=== PATIENT | male | born 1950 | race Caucasian/White ===

== ENCOUNTER → 2017-02-22 | Outpatient (CLI) | payer MEDICARE, BC ==
[~2017-02-22] MED LIST: ALFU10TA7 PO; DUTA0.5C9 PO; LISI-15 PO; METO10TA PO; MULT-728 PO; PANT40TA25 PO; PIRB14AE2 IH; TRIA16.56 NS; ZOLP-109 PO; [UNRECOGNIZED DRUG - CODE] IH
[2017-02-22 14:08] LABS: BASOPHILS % (AUTO) 0.3 % (0-2); EOSINOPHILS # (AUTO) 0.2 T/MM3 (0-0.5); EOSINOPHILS % (AUTO) 3.6 % (0-4); HCT - HEMATOCRIT 40.9 % (41-53); HGB - HEMOGLOBIN 13.7 GM/DL (13.5-17.5); IMMATURE GRANULOCYTE # (AUTO) 0.01 T/MM3 (0.00-0.03); IMMATURE GRANULOCYTE % (AUTO) 0.2 % (0.0-0.5); LYMPHOCYTES # (AUTO) 2.2 T/MM3 (1-4.8); LYMPHOCYTES % (AUTO) 34.6 % (23-45); MEAN CORPUSCULAR HGB 29.3 UUG (26-34); MEAN CORPUSCULAR HGB CONC(MCHC 33.5 GM/DL (31-37); MEAN CORPUSCULAR VOLUME 87.6 UM3 (80-100); MEAN PLATELET VOLUME 10.1 UM3 (9.4-12.4); MONOCYTES # (AUTO) 0.5 T/MM3 (0-0.8); MONOCYTES % (AUTO) 8.1 % (0-9.0); NEUTROPHILS #(AUTO)-ABSOLUTE 3.4 T/MM3 (1.8-7.7); NEUTROPHILS % (AUTO) 53.2 % (33-66); RED BLOOD COUNT 4.67 M/MM3 (4.50-5.90); WBC - WHITE BLOOD COUNT 6.4 T/MM3 (4.5-11.0)
[2017-02-22 14:22] LABS: ALBUMIN 4.4 G/DL (3.5-5.0); ALBUMIN/GLOBULIN RATIO 1.4 RATIO (1.1-2.2); ALKALINE PHOSPHATASE 53 U/L (38-126); ALT (SGPT) 26 U/L (21-72); ANION GAP 14 MEQ/L (5-15); AST (SGOT) 21 U/L (17-59); BUN/CREATININE RATIO 13 RATIO (6-26); CALCIUM 10.1 MG/DL (8.4-10.2); CHLORIDE 108 MEQ/L (98-107); CO2 - CARBON DIOXIDE 24 MEQ/L (22-30); CREATININE 1.3 MG/DL (0.8-1.5); GLOMERULAR FILTRATION RATE 55; GLUCOSE 97 MG/DL (75-110); SODIUM 146 MEQ/L (134-144); TOTAL PROTEIN 7.6 G/DL (6.3-8.2)
--- NOTE | 2017-02-22 14:53 | DI ---
INDICATION: ITS.REASON: Z01.818 Encounter for other preprocedural examination PROCEDURE: CHEST 2-VIEWS UPRIGHT (PA \T\ LAT) Encounter: Initial COMPARISON: None available FINDINGS: There are increased linear markings in the left lower lobe probably representing atelectasis or scarring rather than acute infiltrate. Lungs are otherwise clear. There is no pleural effusion or pneumothorax. The heart size, mediastinal contours and pulmonary vascularity are within normal limits. There is no significant skeletal abnormality. IMPRESSION: Probable left lower lobe atelectasis or scarring. No definite acute cardiopulmonary disease. .
== END ==
LOC: IMA 13:34
PROVIDERS: ATTEND Otolaryngology
DX: Z01.818 Encounter for other preprocedural examination (principal)
CPT/HCPCS: 36415; 80053; 85025; 93005

== ENCOUNTER 2017-03-08 05:57 | Day surgery (SDC) | payer MEDICARE, BC ==
[~2017-03-08] VITALS: Ht 180.3 cm; Wt 99.8 kg
[2017-03-08] VITALS (7 sets, daily range): BP systolic 108–146; BP diastolic 62–85; PULSE 61–82; RESP 13–24; TEMP 97–97.8; O2SAT 95–99; Ht 180.3 cm; Wt 99.8 kg
[~2017-03-08 05:57] MED LIST changes: +ALBU8.5H INH; +ALFU10TA19 PO; -ALFU10TA7 PO; -DUTA0.5C9 PO; +FINA5TAB42 PO; -LISI-15 PO; +LISI-621 PO; -METO10TA PO; -PIRB14AE2 IH; -[UNRECOGNIZED DRUG - CODE] IH
--- OUTSIDE RECORDS SUMMARY | 2017-03-08 06:02 | XMS REPORT | Referral Summary ---
Author Author [facility], [facility] Organization [facility] Address Unknown Phone Unavailable Care Team Providers Care Solar Systems Designer Name Role Phone Jamil Zavala Primary Care Physician [phone] Encounter VC Date(s): 12/21/16 - 12/21/16 [facility] [address] [place] [address]- Discharge Diagnosis: Sinus pain Discharge Diagnosis: Neck pain Discharge Disposition: 01-Home or Self Care Attending Physician: Dank Zavala MD Admitting Physician: Dank Zavala MD Vital Signs Most recent to 1 oldest [Reference Range]: Temperature Tympanic 36.5 degC [36.6-38.1 degC] *LOW* (12/21/16 9:04 AM) Peripheral Pulse 84 bpm Rate [60-100 bpm] (12/21/16 9:04 AM) Respiratory Rate 14 br/min [14-20 br/min] (12/21/16 9:04 AM) Blood Pressure 130/90 mmHg [90-140/60-90 mmHg] (12/21/16 9:04 AM) Problem List Condition Effective Dates Status Health Status Informant Allergy(Confirmed) Active Benign essential Active hypertension (disorder)(Confirmed ) Hx of obstructed Active trilobar hypertrophy of prostate(Confirmed) hx of gross bladder Active trabeculation with multiple cellules(Confirmed) Depressive disorder, Active not elsewhere classified(Confirmed ) hx/slowing of Active urination/not emptying bladder completely(Confirmed ) hx of fossa Active navacularis stricture(Confirmed) Bladder Active diverticulitis(Confi rmed) Gastroesophageal Active reflux disease (disorder)(Confirmed ) Anxiety Active disorder(Confirmed) H/O left flank Active pain(Confirmed) Asthma without Active status asthmaticus (disorder)(Confirmed ) Obesity(Confirmed) Active patient Allergies, Adverse Reactions, Alerts Substance Reaction Severity Status penicillin Rash Active Medications albuterol CFC free 90 mcg/inh inhalation aerosol 90 mcg 1 puffs, Inhalation, q4hr, as needed for wheezing, # 18 g, 2 Refill(s), Pharmacy: [facility] #[id number] Start Date: 09/27/15 Status: Ordered alfuzosin 10 mg oral tablet, extended release See Instructions, TAKE ONE TABLET BY MOUTH EVERY NIGHT AT BEDTIME, # 90 tabs, 2 Refill(s), eRx: [facility] #[id number] Start Date: 11/04/16 Status: Ordered finasteride 5 mg oral tablet 5 mg 1 tabs, Oral, Daily, appt in september, # 90 tabs, 0 Refill(s), Pharmacy: [facility] #[id number], 1 tabs Oral Daily,Instr:appt in september Start Date: 08/10/16 Status: Ordered Flovent HFA 110 mcg/inh inhalation aerosol See Instructions, INHALE TWO PUFFS BY MOUTH TWICE A DAY, # 12 unknown unit, 1 Refill(s), eRx: [facility] #[id number], INHALE TWO PUFFS BY MOUTH TWICE A DAY Start Date: 09/09/16 Status: Ordered lisinopril 20 mg oral tablet See Instructions, TAKE ONE TABLET BY MOUTH ONCE A DAY, # 30 tabs, 5 Refill(s), eRx: [facility] #[id number], TAKE ONE TABLET BY MOUTH ONCE A DAY Start Date: 10/12/16 Status: Ordered meloxicam 15 mg oral tablet 15 mg 1 tabs, Oral, Daily, as needed for neck pain, # 30 tabs, 1 Refill(s), Pharmacy: [facility] #[id number], 1 tabs Oral Daily,PRN:as needed for neck pain Start Date: 12/21/16 Status: Ordered Nasacort Allergy 24HR nasal spray sprays, Nasal, Daily, 0 Refill(s) Start Date: 08/14/14 Status: Ordered pantoprazole 40 mg oral delayed release tablet See Instructions, TAKE ONE TABLET BY MOUTH DAILY, # 30 tabs, 2 Refill(s), eRx: [facility] #[id number] Start Date: 12/10/16 Status: Ordered zolpidem 10 mg oral tablet 10 mg 1 tabs, Oral, Bedtime (once a day), as needed for sleep, s [facility] SUPPL[facility], # 30 tabs, 0 Refill(s) Start Date: 12/18/16 Status: Ordered Results No data available for this section Immunizations Given and Recorded Vaccine Date Status Refusal Reason tetanus/diphth/pertuss (Tdap) adult/adol 02/24/13 Recorded influenza virus vaccine, inactivated 09/25/16 Given influenza virus vaccine, inactivated 09/27/15 Given influenza virus vaccine, inactivated1 08/22/14 Recorded influenza virus vaccine, live 08/30/13 Given influenza virus vaccine, live 08/23/12 Given pneumococcal 13-valent conjugate vaccine 03/25/15 Given pneumococcal 13-valent conjugate vaccine2 08/30/13 Given pneumococcal 23-polyvalent vaccine 08/30/13 Given zoster vaccine live 02/24/13 Given 1Location History: See scanned document 2Result Comment: [08/01/2015 Uncharted] Uploaded in Error - CC Procedures Procedure Date Related Diagnosis Body Site Colonoscopy 10/12/11 Cystoscopy, urethral calibration and 06/24/07 dilataion TUNA 07/24/02 Circumcision Social History Social History Type Response Smoking Status Never smoker Assessment and Plan Extracted from: Title: Ambulatory Patient Education Author: Dank Zavala MD Date: Musculoskeletal Musculoskeletal Pain Musculoskeletal pain is muscle and sofia aches and pains. These pains can occur in any part of the body. Your caregiver may treat you without knowing the cause of the pain. They may treat you if blood or urine tests, X-rays, and other tests were normal. CAUSES There is often not a definite cause or reason for these pains. These pains may be caused by a type of germ (virus). The discomfort may also come from overuse. Overuse includes working out too hard when your body is not fit. Sofia aches also come from weather changes. Bone is sensitive to atmospheric pressure changes. HOME CARE INSTRUCTIONS Ask when your test results will be ready. Make sure you get your test results. Only take qlur-izh-yvopafl or prescription medicines for pain, discomfort , or fever as directed by your caregiver. If you were given medications for your condition, do not drive, operate machinery or power tools, or sign legal documents for 24 hours. Do not drink alcohol. Do not take sleeping pills or other medications that may interfere with treatment. Continue all activities unless the activities cause more pain. When the pain lessens, slowly resume normal activities. Gradually increase the intensity and duration of the activities or exercise. During periods of severe pain, bed rest may be helpful. Lay or sit in any position that is comfortable. Putting ice on the injured area. Put ice in a bag. Place a towel between your skin and the bag. Leave the ice on for 15 to 20 minutes, 3 to 4 times a day. Follow up with your caregiver for continued problems and no reason can be found for the pain. If the pain becomes worse or does not go away, it may be necessary to repeat tests or do additional testing. Your caregiver may need to look further for a possible cause. SEEK IMMEDIATE MEDICAL CARE IF: You have pain that is getting worse and is not relieved by medications. You develop chest pain that is associated with shortness or breath, sweating, feeling sick to your stomach (nauseous), or throw up (vomit). Your pain becomes localized to the abdomen. You develop any new symptoms that seem different or that concern you. MAKE SURE YOU: Understand these instructions. Will watch your condition. Will get help right away if you are not doing well or get worse. This information is not intended to replace advice given to you by your health care provider. Make sure you discuss any questions you have with your health care provider. Document Released: 11/01/2006 Document Revised: 01/23/2013 Document Reviewed: [employer] Interactive Patient Education 2016 [employer] No follow up information was provided. Extracted from: Title: Office Visit Note Author: Dank Zavala MD Date: 12/21/16 Assessment/Plan 1.Sinus pain Because of the persistent nature of his sinusdifficulties of recommended a CT of the sinuses for further evaluation. He is agreeable and will schedule that and see what it shows. No change in current treatment at this time. Ordered: CT Sinus w/o Contrast 2.Neck pain I think this is likely muscular in etiology. Meloxicam is been helpful he may continue to use it over the next week to 10 days. If it doesn't completely resolveor if it seems to be worseningor further problems or concerns arise he'll let us know.
--- OUTSIDE RECORDS SUMMARY | 2017-03-08 06:02 | XMS REPORT | Summary of Care ---
Author Author Kali Walls M.D. Unknown Address Unknown Phone Unavailable Care Team Providers Care Grease Refiner Operator Name Role Phone Kali Walls M.D. Unavailable Unavailable Dank Zavala Unavailable Unavailable Unavailable Unavailable Functional Status Name Dates Details Functional status health issues are not documented Status: Name Dates Details Cognitive status health issues are not documented Status: Problems Name Dates Details Chronic sinusitis (473.9, J32.9) Status: Active Allergic rhinitis (477.9, J30.9) Status: Active Bilateral impacted cerumen (380.4, H61.23) Status: Active Laryngopharyngeal reflux (LPR) (478.79, K21.9) Status: Active Eczematoid otitis externa of both ears (380.22, H60.543) Status: Active Deviated nasal septum (470, J34.2) Status: Active Medications Name Dates Details Flovent HFA 110 MCG/ACT Inhalation Aerosol INHALE 1 PUFF TWICE DAILY. * Start 19-Jan-2017 Active ProAir HFA 108 (90 Base) MCG/ACT Inhalation Aerosol Solution 1-2 puffs every 4-6 hr prn * Quantity: 1 Refills: 0 * Start 19-Jan-2017 Active 8.5 GM Inhaler Lisinopril 20 MG Oral Tablet take one tablet by mouth every day * Quantity: 90 Refills: 0 * Start 19-Jan-2017 Active Pantoprazole Sodium 40 MG Oral Tablet Delayed Release TAKE 1 TABLET BY MOUTH EVERY MORNING 30 MINUTES BEFORE BREAKFAST * Quantity: 28 Refills: 0 * Start 19-Jan-2017 Active Finasteride 5 MG Oral Tablet Take one tablet by mouth daily * Quantity: 90 Refills: 3 * Start 19-Jan-2017 Active 90 Tablet Bottle Alfuzosin HCl ER 10 MG Oral Tablet Extended Release 24 Hour TAKE 1 TABLET DAILY. * Refills: 0 * Start 19-Jan-2017 Active Zolpidem Tartrate 10 MG Oral Tablet TAKE 1 TABLET AT BEDTIME. * Quantity: 1 Refills: 0 * Start 19-Jan-2017 Active 7 Tablet Bottle Meloxicam 15 MG Oral Tablet TAKE 1 TABLET DAILY NEEDED. * Refills: 0 * Start 19-Jan-2017 Active Fluocinolone Acetonide 0.01 % External Cream APPLY SPARINGLY TO AFFECTED AREA(S) TWICE DAILY * Quantity: 1 Refills: 1 Kali Walls M.D. * Start 19-Jan-2017 Active 15 GM Tube Allergies and Adverse Reactions Name Dates Details Penicillins (Allergy) Status: Active Procedures Procedure Dates Details History of Surgery Prostate Cryosurgical Ablation Procedures not documented Immunization Name Dates Details Immunizations not documented Family History Name Dates Details Family history of cardiac disorder (V17.49, Z82.49) Status: Active Family history of hypertension (V17.49, Z82.49) Status: Active Family history of lung disease (V19.8, Z83.6) Status: Active Family history of thyroid disease (V18.19, Z83.49) Status: Active Name Dates Details Family history of cardiac disorder (V17.49, Z82.49) Status: Active Family history of hypertension (V17.49, Z82.49) Status: Active Family history of hyperlipidemia (V18.19, Z83.49) Status: Active Social History Name Dates Details - Status: Name Dates Details Never smoker Vital Signs Date Test Result Details 22-Feb-2017 12:51 BP Systolic 128 mm[Hg] Status: Comments: Location: ; Position: BP Diastolic 91 mm[Hg] Status: Comments: Location: ; Position: Temperature 97.4 f Status: Comments: Method: Heart Rate 84 /min Status: Comments: Location: ; Physical Findings 20 Status: Comments: Respiration Results Date Description Value Details Results not documented Plan of Care Name Dates Details Planned Observations Planned Goals not documented Instructions Name Dates Details Instructions not documented Encounters Appointment; Kali Walls M.D. Encounter Diagnosis: Problem not documented On 19-Jan-2017 12:30
--- OUTSIDE RECORDS SUMMARY | 2017-03-08 06:02 | XMS REPORT | Summary of Care ---
Author Author Kali Walls M.D. Unknown Address Unknown Phone Unavailable Care Team Providers Care Computer Education Teacher Name Role Phone Kali Walls M.D. Unavailable Unavailable Dank Zavala Unavailable Unavailable Unavailable Unavailable Functional Status Name Dates Details Functional status health issues are not documented Status: Name Dates Details Cognitive status health issues are not documented Status: Problems Name Dates Details Chronic sinusitis (473.9, J32.9) Status: Active Allergic rhinitis (477.9, J30.9) Status: Active Bilateral impacted cerumen (380.4, H61.23) Status: Active Otalgia, left (388.70, H92.02) Status: Active Laryngopharyngeal reflux (LPR) (478.79, K21.9) Status: Active Eczematoid otitis externa of both ears (380.22, H60.543) Status: Active Medications Name Dates Details Flovent [...] (Allergy) Status: Active Procedures Procedure Dates Details Procedures not documented Immunization Name Dates Details Immunizations not documented Social History Name Dates Details Unknown if ever smoked Vital Signs Date Test Result Details 19-Jan-2017 12:52 Temperature 98.6 f Status: Comments: Method: Heart Rate 83 /min Status: Comments: Location: ; Physical Findings 16 Status: Comments: Respiration Height 70.5 in Status: Weight 120 lb Status: Physical Findings 99 Status: Comments: O2 Saturation Body Mass Index Calculated 16.97 kg/m2 Status: Body Surface Area Calculated 1.69 m2 Status: Results Date Description Value Details Results not documented Plan of Care Name Dates Details Planned Observations Planned Goals not documented Planned Encounters Appointment; Provider: Kali Walls M.D. On 22-Feb-2017 13:00 Interventions Provided Medication Changes* Fluocinolone Acetonide 0.01 % External Cream - Start Instructions Name Dates Details Instructions not documented Encounters Appointment; Kali Walls M.D. Encounter Diagnosis: Problem not documented On 19-Jan-2017 12:30
--- OUTSIDE RECORDS SUMMARY | 2017-03-08 06:02 | XMS REPORT | Referral Summary ---
Author Author [facility], [facility] Organization [facility] Address Unknown Phone Unavailable Care Team Providers Care Irrigator Sprinkling System Name Role Phone Jamil Zavala Primary Care Physician [phone] Encounter VC Date(s): 03/25/15 - 03/25/15 [facility] [address] [place] [address]- Discharge Diagnosis: Gastroesophageal reflux disease Discharge Diagnosis: Asthma without status asthmaticus Discharge Diagnosis: Benign essential hypertension Discharge Diagnosis: Anxiety disorder Discharge Disposition: 01-Home or Self Care Attending Physician: Dank Zavala MD Admitting Physician: Dank Zavala MD Vital Signs Most recent to 1 oldest [Reference Range]: Temperature Tympanic 36.7 degC [36.6-38.1 degC] (03/25/15 7:58 AM) Peripheral Pulse 80 bpm Rate [60-100 bpm] (03/25/15 7:58 AM) Respiratory Rate 16 br/min [14-20 br/min] (03/25/15 7:58 AM) Blood Pressure 108/80 mmHg [90-140/60-90 mmHg] (03/25/15 7:58 AM) Problem List Condition Effective Dates Status Health Status Informant Allergy(Confirmed) Active Anxiety Active disorder(Confirmed) Asthma without Active status asthmaticus (disorder)(Confirmed ) Benign essential Active hypertension (disorder)(Confirmed ) Hx of obstructed Active trilobar hypertrophy of prostate(Confirmed) hx of gross bladder Active trabeculation with multiple cellules(Confirmed) Depressive disorder, Active not elsewhere classified(Confirmed ) hx/slowing of Active urination/not emptying bladder completely(Confirmed ) hx of fossa Active navacularis stricture(Confirmed) Bladder Active diverticulitis(Confi rmed) Gastroesophageal Active reflux disease (disorder)(Confirmed ) H/O left flank Active pain(Confirmed) Obesity(Confirmed) Active patient Allergies, Adverse Reactions, Alerts Substance Reaction Severity Status penicillin Rash Active Medications albuterol CFC free 90 mcg/inh inhalation aerosol 1 puffs, Inhalation, q4hr, as needed for wheezing, # 6.7 g, 0 Refill(s) Start Date: 04/30/14 Status: Ordered finasteride 5 mg oral tablet See Instructions, TAKE ONE TABLET BY MOUTH DAILY, # 90 tabs, eRx: [facility] #[id number], TAKE ONE TABLET BY MOUTH DAILY Start Date: 08/30/15 Status: Ordered Flovent HFA 110 mcg/inh inhalation aerosol See Instructions, INHALE TWO PUFFS BY MOUTH TWICE A DAY, # 12 unknown unit, eRx : [facility] #[id number], INHALE TWO PUFFS BY MOUTH TWICE A DAY Start Date: 09/18/15 Status: Ordered lisinopril 20 mg oral tablet See Instructions, TAKE ONE TABLET BY MOUTH ONCE A DAY, # 30 tabs, eRx: [facility] #[id number], TAKE ONE TABLET BY MOUTH ONCE A DAY Start Date: 09/18/15 Status: Ordered Nasacort Allergy 24HR nasal spray sprays, Nasal, Daily, 0 Refill(s) Start Date: 08/14/14 Status: Ordered Protonix 40 mg oral delayed release tablet See Instructions, TAKE ONE TABLET BY MOUTH DAILY, # 30 tabs, eRx: [facility] #[id number], TAKE ONE TABLET BY MOUTH DAILY Start Date: 09/18/15 Status: Ordered Uroxatral 10 mg oral tablet, extended release See Instructions, TAKE ONE TABLET BY MOUTH AT BEDTIME, # 30 tabs, 1 Refill(s), eRx: [facility] #[id number], TAKE ONE TABLET BY MOUTH AT BEDTIME Start Date: 09/11/15 Status: Ordered zolpidem 10 mg oral tablet 10 mg 1 tabs, Oral, Bedtime (once a day), as needed for sleep, s [facility] SUPPL[facility], # 30 tabs, 0 Refill(s) Start Date: 08/30/15 Status: Ordered Results No data available for this section Immunizations Vaccine Date Refusal Reason tetanus/diphth/pertuss (Tdap) adult/adol 02/24/13 influenza virus vaccine, inactivated1 08/22/14 influenza virus vaccine, live 08/30/13 influenza virus vaccine, live 08/23/12 pneumococcal 13-valent conjugate vaccine 03/25/15 pneumococcal 23-polyvalent vaccine 08/30/13 zoster vaccine live 02/24/13 1Location History: See scanned document Procedures Procedure Date Related Diagnosis Body Site Colonoscopy 10/12/11 Cystoscopy, urethral calibration and 06/24/07 dilataion TUNA 07/24/02 Circumcision Social History Social History Type Response Smoking Status Never smoker Assessment and Plan Extracted from: Title: Ambulatory Patient Education Author: Dank Zavala MD Date: Family Medicine Hypertension Hypertension is another name for high blood pressure. High blood pressure may mean that your heart needs to work harder to pump blood. Blood pressure consists of two numbers, which includes a higher number over a lower number ( example: 110/72). HOME CARE Make lifestyle changes as told by your doctor. This may include weight loss and exercise. Take your blood pressure medicine every day. Limit how much salt you use. Stop smoking if you smoke. Do not use drugs. Talk to your doctor if you are using decongestants or control pills. These medicines might make blood pressure higher. Females should not drink more than 1 alcoholic drink per day. Males should not drink more than 2 alcoholic drinks per day. See your doctor as told. GET HELP RIGHT AWAY IF: You have a blood pressure reading with a top number of 180 or higher. You get a very bad headache. You get blurred or changing vision. You feel confused. You feel weak, numb, or faint. You get chest or belly (abdominal ) pain. You throw up (vomit ). You cannot breathe very well. MAKE SURE YOU: Understand these instructions. Will watch your condition. Will get help right away if you are not doing well or get worse. Document Released: 04/19/2009 Document Revised: 01/23/2013 Document Reviewed: [employer] Patient Information 2014 [employer]. No follow up information was provided. Extracted from: Title: Office Visit Note Author: Dank Zavala MD Date: 03/25/15 Assessment/Plan Anxiety disorder Overall stable no change in current treatment. Ordered: Office Visit Level 4 Est 16115 Asthma without status asthmaticus Appears stable no change in current treatment. Prevnar was given today. Continue rescue inhaler. If symptoms worsen or become more problematic she'll let us know. Ordered: pneumococcal 13-valent conjugate vaccine, 0.5 mL, IntraMuscular, Once, First Dose: 03/25/15 9:00:00 CDT, Stop Date: 03/25/15 9:00:00 CDT, Form: Injection Office Visit Level 4 Est 14303 Benign essential hypertension Blood pressures well-controlled. Continue current treatment without change. Laboratory studies from last fall reviewed. Recommend a six-month follow-up with fasting lab. Ordered: pneumococcal 13-valent conjugate vaccine, 0.5 mL, IntraMuscular, Once, First Dose: 03/25/15 9:00:00 CDT, Stop Date: 03/25/15 9:00:00 CDT, Form: Injection Office Visit Level 4 Est 52119 Gastroesophageal reflux disease Stable no change in current treatment. Ordered: Office Visit Level 4 Est 18594
--- OUTSIDE RECORDS SUMMARY | 2017-03-08 06:02 | XMS REPORT | Continuity of Care Document ---
Author Author Rea MEZA, Rohit [facility] Address [address] [place] [address] Phone Care Team Providers Care Assistant Professor Of Criminal Justice Name Role Phone Dank Zavala PP Unavailable Payers Payer name Insurance type Covered democrat ID Authorization(s) Unknown Problems Condition Effective Dates (start - stop) Clinical Status BPH - *Controlled Hypertension, Unspecified - *Controlled Unspecified asthma - *Controlled Hypertension, Benign - *Chronic Asthma - *Chronic GERD - *Chronic Depression - *Chronic Mole of skin - Atypical Influenza Vaccine - Hypertension, Benign - *Controlled Asthma - *Controlled GERD - *Chronic Depression - *Chronic Hypertension, Benign - *Chronic Asthma - *Chronic GERD - *Chronic Depression - *Chronic Hypertension, Benign - Chronic Asthma - Chronic GERD - Chronic Depression - Chronic Allergic rhinitis, cause unspecified - *Chronic BPH - *Chronic Pneumonia Vaccine - NEED FOR PROPHYLACTIC VACCINATION WITH COMBINED [id number] ( DTP) (DTAP) VACCINE - NEED FOR PROPHYLACTIC VACCINATION AND INOCULATION, OTHER VIRAL DISEASES - Hypertension, Benign - *Chronic Asthma - *Chronic GERD - *Chronic Depression - *Chronic Hypertension, Benign - Chronic Asthma - Chronic GERD - Chronic Depression - Chronic ANXIETY STATE NOS - 311 - DEPRESSIVE DISORDER NEC - ASTHMA NOS - ESOPHAGEAL REFLUX - ALLERGY, UNSPECIFIED - BPH - *Controlled Skin lesion of cheek - *Chronic BPH - *Controlled Family History Family Member Diagnosis Age At Onset Status Unknown Social History Social History Element Description Quantity Unknown Allergies, Adverse Reactions, Alerts Substance Reaction Severity Status PENICILLINS Rash Unknown Medications Medication Instructions Dosage Effective Dates (start - stop) Status Nasacort AQ 55 mcg nasal spray aerosol instill 2 sprays in each nostril once daily - Active albuterol sulfate HFA 90 mcg/actuation aerosol inhaler inhale 2 puff by inhalation route every 4 - 6 hours as needed 0 - Active Avodart 0.5 mg capsule Take 1 capsule by mouth every day. - Active Protonix 40 mg tablet,delayed release Take 1 tablet by mouth every day. - Active Flovent HFA 110 mcg/actuation aerosol inhaler Inhale 2 puffs twice a day. - Active Uroxatral 10 mg tablet,extended release Take 1 tablet by mouth at bedtime. - Active Ambien 10 mg tablet Take 1 tablet by mouth at bedtime as needed. 2013 - Active lisinopril 20 mg tablet take 1 tablet (20MG) by oral route every day 20 MG - Active Immunizations Vaccine Date Status Comments Flu (split) (3 yrs or older) completed Flu (split) (3 yrs or older) completed Pneumo (2 yrs or older)(PPV) completed Tdap (Boostrix r) completed Zoster completed Results Test Name Date and Time Measure Units Reference Range Abnormal Flag Comments Unknown Vital Signs Date / Time: Height Weight Pulse Rate Blood Pressure Temperature /15:00:00 70.75 in 201.00 lbs 72 /min 120/80 mm[Hg] Procedures Procedure Date Unknown Encounters Encounter Location Date Patient Visit [facility] Patient Visit [facility] Patient Visit [facility] Advance Directives Directive Effective Date Unknown
--- OUTSIDE RECORDS SUMMARY | 2017-03-08 06:02 | XMS REPORT | Referral Summary ---
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 Discharge Disposition: 01-Home or Self Care Attending Physician: Rohit Lucia JR, MD Admitting Physician: Rohit Lucia JR, MD Referring Physician: Dank Zavala MD Vital Signs Most recent to 1 oldest [Reference Range]: Peripheral Pulse 78 bpm Rate [60-100 bpm] (08/13/15 10:15 AM) Blood Pressure 122/84 mmHg [90-140/60-90 mmHg] (08/13/15 10:15 AM) Problem List Condition Effective Dates Status [...] wheezing, # 18 g, 2 Refill(s), Pharmacy: [facility] #[id number] Start Date: 09/27/15 Status: Ordered finasteride 5 mg oral tablet See Instructions, TAKE ONE TABLET BY MOUTH DAILY, # 90 tabs, eRx: [facility] #[id number], TAKE ONE TABLET BY MOUTH DAILY Start Date: 01/31/16 Status: Ordered Flovent HFA 110 mcg/inh inhalation aerosol See Instructions, INHALE TWO PUFFS BY MOUTH TWICE A DAY, # 12 unknown unit, 2 Refill(s), eRx: [facility] #[id number], INHALE TWO PUFFS BY MOUTH TWICE A DAY Start Date: 11/06/15 Status: Ordered lisinopril 20 mg oral tablet See Instructions, TAKE ONE TABLET BY MOUTH ONCE A DAY, # 30 tabs, 4 Refill(s), eRx: [facility] #[id number], TAKE ONE TABLET BY MOUTH ONCE A DAY Start Date: 10/16/15 Status: Ordered Nasacort Allergy 24HR nasal spray sprays, Nasal, Daily, 0 Refill(s) Start Date: 08/14/14 Status: Ordered Protonix 40 mg oral delayed release tablet See Instructions, TAKE ONE TABLET BY MOUTH DAILY, # 30 tabs, 4 Refill(s), eRx: [facility] #[id number], TAKE ONE TABLET BY MOUTH DAILY Start Date: 10/16/15 Status: Ordered Uroxatral 10 mg oral tablet, extended release See Instructions, TAKE ONE TABLET BY MOUTH AT BEDTIME, # 30 tabs, 1 Refill(s), eRx: [facility] #[id number], TAKE ONE TABLET BY MOUTH AT BEDTIME Start Date: 02/05/16 Status: Ordered zolpidem 10 mg oral tablet 10 mg 1 tabs, Oral, Bedtime (once a day), as needed for sleep, s [facility] SUPPLY, # 30 tabs, 0 Refill(s) Start Date: 02/14/16 Status: Ordered Results No data available for this section Immunizations Vaccine Date Refusal Reason tetanus/diphth/pertuss (Tdap) adult/adol 02/24/13 influenza virus vaccine, inactivated 09/27/15 influenza virus vaccine, inactivated1 08/22/14 influenza virus [...] Extracted from: Title: Ambulatory Patient Education Author: Rohit Lucia JR, MD Date : 08/13/15 Follow Up With: Where: When: Dank Zavala [address]; [address] [facility] [place], [place] [id number] Business (1) Within 3 to 5 days Comments: Follow Up With: Where: When: Rohit Xavier [address]; [address] [facility] [place], [place] [id number] [employer] (1) In 6 months 02/11/2016 Comments: Extracted from: Title: Office Visit Note Author: Rohit Lucia JR, MD Date: 08/13/15 Assessment/Plan 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 History of BPH with lower urinary tract symptoms, taking finasteride and Uroxatral. Episodes of slowing of urination especially if he forgets to take finasteride and Uroxatral, because he think is from the medication for his asthma and his history of stricture at the anterior urethra. To come and see me in the office in one year or sooner if needed especially if he has hard time emptying his bladder.. Continue taking the finasteride and Uroxatral. Patient reminded not to take any medication [id number] that contents any decongestant, for it might cause him to go into urinary retention Ordered: Office Visit Level 3 Est 6[address]
--- OUTSIDE RECORDS SUMMARY | 2017-03-08 06:02 | XMS REPORT | Referral Summary ---
Author Author [facility], [facility] Organization [facility] Address Unknown Phone Unavailable Care Team Providers Care Pipelines Superintendent Name Role Phone Jamil Zavala Primary Care Physician [phone] Encounter [facility] Date(s): 10/07/15 - 10/07/15 [facility] [address] [place] [address]- Discharge Diagnosis: Benign mole Discharge Disposition: 01-Home or Self Care Attending Physician: Dank Zavala MD Admitting Physician: Dank Zavala MD Vital Signs Most recent to 1 oldest [Reference Range]: Temperature Tympanic 36.6 degC [36.6-38.1 degC] (10/07/15 8:43 AM) Peripheral Pulse 80 bpm Rate [60-100 bpm] (10/07/15 8:43 AM) Respiratory Rate 16 br/min [14-20 br/min] (10/07/15 8:43 AM) Blood Pressure 126/78 mmHg [90-140/60-90 mmHg] (10/07/15 8:43 AM) Problem List Condition Effective Dates Status [...] wheezing, # 18 g, 2 Refill(s), Pharmacy: [facility] #[id number] Start Date: 09/27/15 Status: Ordered finasteride 5 mg oral tablet See Instructions, TAKE ONE TABLET BY MOUTH DAILY, # 90 tabs, eRx: [facility] #[id number], TAKE ONE TABLET BY MOUTH DAILY Start Date: 08/30/15 Status: Ordered Flovent HFA 110 mcg/inh inhalation aerosol See Instructions, INHALE TWO PUFFS BY MOUTH TWICE A DAY, # 12 unknown unit, eRx : [facility] #[id number], INHALE TWO PUFFS BY MOUTH TWICE A DAY Start Date: 09/18/15 Status: Ordered lisinopril 20 mg oral tablet See Instructions, TAKE ONE TABLET BY MOUTH ONCE A DAY, # 30 tabs, eRx: [facility] #[id number], TAKE ONE TABLET BY MOUTH ONCE A DAY Start Date: 09/18/15 Status: Ordered Nasacort Allergy 24HR nasal spray sprays, Nasal, Daily, 0 Refill(s) Start Date: 08/14/14 Status: Ordered Protonix 40 mg oral delayed release tablet See Instructions, TAKE ONE TABLET BY MOUTH DAILY, # 30 tabs, eRx: [facility] #[id number], TAKE ONE TABLET BY MOUTH DAILY Start Date: 09/18/15 Status: Ordered Uroxatral 10 mg oral tablet, extended release See Instructions, TAKE ONE TABLET BY MOUTH AT BEDTIME, # 30 tabs, 1 Refill(s), eRx: [facility] #[id number], TAKE ONE TABLET BY MOUTH AT BEDTIME Start Date: 09/11/15 Status: Ordered zolpidem 10 mg oral tablet 10 mg 1 tabs, Oral, Bedtime (once a day), as needed for sleep, s [facility] SUPPLY, # 30 tabs, 0 Refill(s) Start Date: 09/27/15 Status: Ordered Results No data available for this section Immunizations Vaccine Date Refusal Reason tetanus/diphth/pertuss (Tdap) adult/adol 02/24/13 influenza virus vaccine, inactivated 09/27/15 influenza virus vaccine, inactivated1 08/22/14 influenza virus vaccine, live 08/30/13 influenza virus vaccine, live 08/23/12 pneumococcal 13-valent conjugate vaccine 03/25/15 pneumococcal 23-polyvalent vaccine 08/30/13 zoster vaccine live 02/24/13 1Location History: See scanned document Procedures Procedure Date Related Diagnosis Body Site Shaving of epidermal or dermal lesion, single 10/07/15 lesion, face, ears, eyelids, nose, lips, mucous membrane; lesion diameter 0.6 to 1.0 cm Colonoscopy 10/12/11 Cystoscopy, urethral calibration and 06/24/07 dilataion TUNA 07/24/02 Circumcision Social History Social History Type Response Smoking Status Never smoker Assessment and Plan Extracted from: Title: Office Visit Note Author: Dank Zavala MD Date: 10/07/15 Assessment/Plan Benign mole I think this is a benign mole and I've recommended a shave biopsy. The area was prepped with alcohol anesthetized 1 percent lidocaine with epinephrine. A simple shave was then done. Hyfrecator was used for hemostasis. I did send a specimen for pathologic evaluation. He is to keep the area clean and dry. If he has any trouble as it heals or further questions or concerns he'll let me now. Ordered: vg skin lesion 1 f/e/e/n/l/m diam 0.6-1.0 cm [id number]
--- OUTSIDE RECORDS SUMMARY | 2017-03-08 06:02 | XMS REPORT | Referral Summary ---
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 #[id number], TAKE ONE TABLET BY MOUTH DAILY Start Date: 08/30/15 Status: Ordered Flovent HFA 110 mcg/inh inhalation aerosol See Instructions, INHALE TWO PUFFS BY MOUTH TWICE A DAY, # 12 unknown unit, eRx : [facility] #[id number], INHALE TWO PUFFS BY MOUTH TWICE A DAY Start Date: 09/18/15 Status: Ordered lisinopril 20 mg oral tablet See Instructions, TAKE ONE TABLET BY MOUTH ONCE A DAY, # 30 tabs, eRx: [facility] #[id number], TAKE ONE TABLET BY MOUTH ONCE A DAY Start Date: 09/18/15 Status: Ordered Nasacort Allergy 24HR nasal spray sprays, Nasal, Daily, 0 Refill(s) Start Date: 08/14/14 Status: Ordered Protonix 40 mg oral delayed release tablet See Instructions, TAKE ONE TABLET BY MOUTH DAILY, # 30 tabs, eRx: [facility] #[id number], TAKE ONE TABLET BY MOUTH DAILY Start Date: 09/18/15 Status: Ordered Uroxatral 10 mg oral tablet, extended release See Instructions, TAKE ONE TABLET BY MOUTH AT BEDTIME, # 30 tabs, 1 Refill(s), eRx: [facility] #[id number], TAKE ONE TABLET BY MOUTH AT BEDTIME Start Date: 09/11/15 Status: Ordered zolpidem 10 mg oral tablet 10 mg 1 tabs, Oral, Bedtime (once a day), as needed for sleep, s [facility] SUPPLY, # 30 tabs, 0 [...] Up With: Where: When: Dank Zavala [address]; [place] [address] Business (1) Within 3 to 5 days Comments: Follow Up With: Where: When: Rohit Lucia [address]; [place] [address] Business (1) In 6 months 02/11/2016 Comments: Extracted [...] Patient reminded not to take any medication [id number] that contents any decongestant, for it might cause him to go into urinary retention Ordered: Office Visit Level 3 Est 00024
--- OUTSIDE RECORDS SUMMARY | 2017-03-08 06:02 | XMS REPORT | Referral Summary ---
Author Author [facility], [facility] Organization [facility] Address Unknown Phone Unavailable Care Team Providers Care Straw Hat Presser Name Role Phone Jamil Zavala Primary Care Physician [phone] Encounter Date(s): 03/27/16 - 03/27/16 [facility] [address] [place] [address]- Discharge Diagnosis: Benign essential hypertension Discharge Diagnosis: BPH (benign prostatic hypertrophy) Discharge Diagnosis: Asthma without status asthmaticus (disorder) Discharge Diagnosis: Allergic rhinitis Discharge Disposition: 01-Home or Self Care Attending Physician: Dank Zavala MD Admitting Physician: Dank Zavala MD Vital Signs Most recent to 1 oldest [Reference Range]: Temperature Tympanic 36.1 degC [36.6-38.1 degC] *LOW* (03/27/16 8:01 AM) Peripheral Pulse 72 bpm Rate [60-100 bpm] (03/27/16 8:01 AM) Respiratory Rate 16 br/min [14-20 br/min] (03/27/16 8:01 AM) Blood Pressure 130/76 mmHg [90-140/60-90 mmHg] (03/27/16 8:01 AM) Problem List Condition Effective Dates Status Health Status Informant Allergy(Confirmed) Active Anxiety Active disorder(Confirmed) Benign essential Active hypertension (disorder)(Confirmed ) Hx of obstructed Active trilobar hypertrophy of prostate(Confirmed) hx of gross bladder Active trabeculation with multiple cellules(Confirmed) Depressive disorder, Active not elsewhere classified(Confirmed ) hx/slowing of Active urination/not emptying bladder completely(Confirmed ) hx of fossa Active navacularis stricture(Confirmed) Bladder Active diverticulitis(Confi rmed) Gastroesophageal Active reflux disease (disorder)(Confirmed ) H/O left flank Active pain(Confirmed) Asthma without Active status asthmaticus (disorder)(Confirmed ) Obesity(Confirmed) Active patient Allergies, Adverse Reactions, Alerts Substance Reaction Severity Status penicillin Rash Active Medications albuterol CFC free 90 mcg/inh inhalation aerosol 90 mcg 1 puffs, Inhalation, q4hr, as needed for wheezing, # 18 g, 2 Refill(s), Pharmacy: [facility] #[id number] Start Date: 09/27/15 Status: Ordered finasteride 5 mg oral tablet See Instructions, TAKE ONE TABLET BY MOUTH DAILY, # 90 tabs, eRx: [facility] #[id number], TAKE ONE TABLET BY MOUTH DAILY Start Date: 01/31/16 Status: Ordered Flovent HFA 110 mcg/inh inhalation aerosol See Instructions, INHALE TWO PUFFS BY MOUTH TWICE A DAY, # 12 unknown unit, 2 Refill(s), eRx: [facility] #[id number], INHALE TWO PUFFS BY MOUTH TWICE A DAY Start Date: 11/06/15 Status: Ordered lisinopril 20 mg oral tablet See Instructions, TAKE ONE TABLET BY MOUTH ONCE A DAY, # 30 tabs, 5 Refill(s), eRx: [facility] #[id number], TAKE ONE TABLET BY MOUTH ONCE A DAY Start Date: 03/13/16 Status: Ordered Nasacort Allergy 24HR nasal spray sprays, Nasal, Daily, 0 Refill(s) Start Date: 08/14/14 Status: Ordered pantoprazole 40 mg oral delayed release tablet See Instructions, TAKE ONE TABLET BY MOUTH DAILY, # 30 tabs, 4 Refill(s), eRx: [facility] #[id number], TAKE ONE TABLET BY MOUTH DAILY Start Date: 03/13/16 Status: Ordered Uroxatral 10 mg oral tablet, extended release See Instructions, TAKE ONE TABLET BY MOUTH AT BEDTIME, # 30 tabs, 1 Refill(s), eRx: [facility] #[id number], TAKE ONE TABLET BY MOUTH AT BEDTIME Start Date: 02/05/16 Status: Ordered zolpidem 10 mg oral tablet 10 mg 1 tabs, Oral, Bedtime (once a day), as needed for sleep, s [facility] SUPPLY, # 30 tabs, 0 Refill(s) Start Date: 03/13/16 Status: Ordered Results No data available for [...] Author: Dank Zavala MD Date: Family Medicine Asthma Asthma is a recurring condition in which the airways tighten and narrow. Asthma can make it difficult to breathe. It can cause coughing, wheezing, and shortness of breath. Asthma episodes, also called asthma attacks, range from minor to life-threatening. Asthma cannot be cured, but medicines and lifestyle changes can help control it. CAUSES Asthma is believed to be caused by inherited (genetic) and environmental factors , but its exact cause is unknown. Asthma may be triggered by allergens, lung infections, or irritants in the air. Asthma triggers are different for each person. Common triggers include: Animal dander. Dust mites. Cockroaches. Pollen from trees or grass. Mold. Smoke. Air pollutants such as dust, household board layer, hair sprays, aerosol sprays, paint fumes, strong chemicals, or strong odors. Cold air, weather changes, and winds (which increase molds and pollens in the air). Strong emotional expressions such as crying or laughing hard. Stress. Certain medicines (such as aspirin) or types of drugs (such as beta- blockers). Sulfites in foods and drinks. Foods and drinks that may contain sulfites include dried fruit, potato chips, and sparkling grape juice. Infections or inflammatory conditions such as the flu, a cold, or an inflammation of the nasal membranes (rhinitis). Gastroesophageal reflux disease (GERD). Exercise or strenuous activity. SYMPTOMS Symptoms may occur immediately after asthma is triggered or many hours later. Symptoms include: Wheezing. Excessive nighttime or band sewer coughing. Frequent or severe coughing with a common cold. Chest tightness. Shortness of breath. DIAGNOSIS The diagnosis of asthma is made by a review of your medical history and a physical exam. Tests may also be performed. These may include: Lung function studies. These tests show how much air you breathe in and out. Allergy tests. Imaging tests such as X-rays. TREATMENT Asthma cannot be cured, but it can usually be controlled. Treatment involves identifying and avoiding your asthma triggers. It also involves medicines. There are 2 classes of medicine used for asthma treatment: Controller medicines. These prevent asthma symptoms from occurring. They are usually taken every day. Reliever or rescue medicines. These quickly relieve asthma symptoms. They are used as needed and provide short-term relief. Your health care provider will help you create an asthma action plan. An asthma action plan is a written plan for managing and treating your asthma attacks. It includes a list of your asthma triggers and how they may be avoided. It also includes information on when medicines should be taken and when their dosage should be changed. An action plan may also involve the use of a device called a peak flow meter. A peak flow meter measures how well the lungs are working. It helps you monitor your condition. HOME CARE INSTRUCTIONS Take medicines only as directed by your health care provider. Speak with your health care provider if you have questions about how or when to take the medicines. Use a peak flow meter as directed by your health care provider. Record and keep track of readings. Understand and use the action plan to help minimize or stop an asthma attack without needing to seek medical care. Control your home environment in the following ways to help prevent asthma attacks: Do not smoke. Avoid being exposed to secondhand smoke. Change your heating and air conditioning filter regularly. Limit your use of fireplaces and wood stoves. Get rid of pests (such as roaches and mice) and their droppings. Throw away plants if you see mold on them. Clean your floors and dust regularly. Use unscented cleaning products. Try to have someone else vacuum for you regularly. Stay out of rooms while they are being vacuumed and for a short while afterward. If you vacuum, use a dust mask from a hardware store, a double-layered or microfilter vacuum delta system freight car cleaner bag, or a vacuum delta system freight car cleaner with a HEPA filter. Replace carpet with wood, tile, or vinyl mary ellen. Carpet can trap dander and dust. Use allergy-proof pillows, mattress covers, and box spring covers. Wash bed sheets and blankets every week in hot water and dry them in a dryer. Use blankets that are made of polyester or cotton. Clean bathrooms and jann with bleach. If possible, have someone repaint the reyes in these rooms with mold-resistant paint. Keep out of the rooms that are being cleaned and painted. Wash hands frequently. SEEK MEDICAL CARE IF: You have wheezing, shortness of breath, or a cough even if taking medicine to prevent attacks. The colored mucus you cough up (sputum) is thicker than usual. Your sputum changes from clear or white to yellow, green, manning, or bloody. You have any problems that may be related to the medicines you are taking (such as a rash, itching, swelling, or trouble breathing). You are using a reliever medicine more than 23 times per week. Your peak flow is still at 5079% of your personal best after following your action plan for 1 hour. You have a fever. SEEK IMMEDIATE MEDICAL CARE IF: You seem to be getting worse and are unresponsive to treatment during an asthma attack. You are short of breath even at rest. You get short of breath when doing very little physical activity. You have difficulty eating, drinking, or talking due to asthma symptoms. You develop chest pain. You develop a fast heartbeat. You have a bluish color to your lips or fingernails. You are light-headed, dizzy, or faint. Your peak flow is less than 50% of your personal best. MAKE SURE YOU: Understand these instructions. Will watch your condition. Will get help right away if you are not doing well or get worse. This information is not intended to replace advice given to you by your health care provider. Make sure you discuss any questions you have with your health care provider. Document Released: 11/01/2006 Document Revised: 03/18/2015 Document Reviewed: ExitCare Patient Information 2015 [facility]. No follow up information was provided. Extracted from: Title: Office Visit Note Author: Dank Zavala MD Date: 03/27/16 Assessment/Plan Allergic rhinitis, Allergic rhinitis due to pollen Chronic stableno change in current treatment is recommended. Ordered: Office Visit Level 4 Est 33897 Asthma without status asthmaticus (disorder), Mild persistent asthma, uncomplicated Continues on his regularmaintenance inhaler and has a rescue inhaler as needed. She is finding that he is using his rescue inhaleron increased basis let us know. Recheck in 6 months. Ordered: Office Visit Level 4 Est 77144 Benign essential hypertension, Essential (primary) hypertension Blood pressures well-controlled. Medications and treatments reviewed no changes are recommended. Laboratory studies from last fall reviewed. Follow- up in 6 months is recommended. Fasting lab prior to that appointment. Report card reviewed and provided. Ordered: Office Visit Level 4 Est 60954 BPH (benign prostatic hypertrophy), Enlarged prostate without lower urinary tract symptoms Chronic stable on current medications no changes are recommended. Ordered: Office Visit Level 4 Est 38974
--- OUTSIDE RECORDS SUMMARY | 2017-03-08 06:02 | XMS REPORT | Referral Summary ---
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 [...] BY MOUTH DAILY, # 90 tabs, eRx: [facility] #[id number], TAKE ONE TABLET BY MOUTH DAILY Start Date: 08/30/15 Status: Ordered Flovent HFA 110 mcg/inh inhalation aerosol See Instructions, INHALE TWO PUFFS BY MOUTH TWICE A DAY, # 12 unknown unit, eRx : [facility] #[id number], INHALE TWO PUFFS BY MOUTH TWICE A DAY Start Date: 09/18/15 Status: Ordered lisinopril 20 mg oral tablet See Instructions, TAKE ONE TABLET BY MOUTH ONCE A DAY, # 30 tabs, eRx: [facility] #[id number], TAKE ONE TABLET BY MOUTH ONCE A DAY Start Date: 09/18/15 Status: Ordered Nasacort Allergy 24HR nasal spray sprays, Nasal, Daily, 0 Refill(s) Start Date: 08/14/14 Status: Ordered Protonix 40 mg oral delayed release tablet See Instructions, TAKE ONE TABLET BY MOUTH DAILY, # 30 tabs, eRx: [facility] #[id number], TAKE ONE TABLET BY MOUTH DAILY Start Date: 09/18/15 Status: Ordered Uroxatral 10 mg oral tablet, extended release See Instructions, TAKE ONE TABLET BY MOUTH AT BEDTIME, # 30 tabs, 1 Refill(s), eRx: [facility] #[id number], TAKE ONE TABLET BY MOUTH AT BEDTIME Start Date: 09/11/15 Status: Ordered zolpidem 10 mg oral tablet 10 mg 1 tabs, Oral, Bedtime (once a day), as needed for sleep, s [facility] SUPPLY, # 30 tabs, 0 [...] Up With: Where: When: Dank Zavala [address]; [place] [address] Business (1) Within 3 to 5 days Comments: Follow Up With: Where: When: Rohit Lucia [address]; [place] [address] Business (1) In 6 months 02/11/2016 Comments: [...] Patient reminded not to take any medication [id number] that contents any decongestant, for it might cause him to go into urinary retention Ordered: Office Visit Level 3 Est 10533
--- OUTSIDE RECORDS SUMMARY | 2017-03-08 06:02 | XMS REPORT | Referral Summary ---
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 #[id number], TAKE ONE TABLET BY MOUTH DAILY Start Date: 05/20/15 Status: Ordered Flovent HFA 110 mcg/inh inhalation aerosol See Instructions, INHALE TWO PUFFS BY MOUTH TWICE A DAY, # 12 unknown unit, 1 Refill(s), eRx: [facility] #[id number], INHALE TWO PUFFS BY MOUTH TWICE A DAY Start Date: 06/10/15 Status: Ordered lisinopril 20 mg oral tablet See Instructions, TAKE ONE TABLET BY MOUTH ONCE A DAY, # 30 tabs, 4 Refill(s), eRx: [facility] #[id number], TAKE ONE TABLET BY MOUTH ONCE A DAY Start Date: 04/18/15 Status: Ordered Nasacort Allergy 24HR nasal spray sprays, Nasal, Daily, 0 Refill(s) Start Date: 08/14/14 Status: Ordered Protonix 40 mg oral delayed release tablet See Instructions, TAKE ONE TABLET BY MOUTH DAILY, # 30 tabs, 4 Refill(s), eRx: [facility] #[id number], TAKE ONE TABLET BY MOUTH DAILY Start Date: 04/18/15 Status: Ordered Uroxatral 10 mg oral tablet, extended release See Instructions, TAKE ONE TABLET BY MOUTH AT BEDTIME, # 30 tabs, 2 Refill(s), eRx: [facility] #[id number], TAKE ONE TABLET BY MOUTH AT BEDTIME Start Date: 06/10/15 Status: Ordered zolpidem 10 mg oral tablet 10 mg 1 tabs, Oral, Bedtime (once a day), as needed for sleep, s [facility] SUPPLY, # 30 tabs, 0 Refill(s) Start Date: 08/02/15 Status: Ordered Results No data available for [...] Up With: Where: When: Dank Zavala [address]; [place], [place] [id number] Business (1) Within 3 to 5 days Comments: Follow Up With: Where: When: Rohit Padgett [address]; Via [facility] [place] [address] Business (1) In 6 months 02/11/2016 Comments: [...] Patient reminded not to take any medication [id number] that contents any decongestant, for it might cause him to go into urinary retention Ordered: Office Visit Level 3 Est 54208
--- OUTSIDE RECORDS SUMMARY | 2017-03-08 06:02 | XMS REPORT | Referral Summary ---
Author Author [facility], [facility] Organization [facility] Address Unknown Phone Unavailable Care Team Providers Care Desulfurizer Machine Name Role Phone Jamil Zavala Primary Care Physician [phone] Encounter VC Date(s): 03/25/15 - 03/25/15 [facility] [address] [place] [address]- Discharge Diagnosis: Gastroesophageal reflux disease Discharge Diagnosis: [...] BY MOUTH DAILY, # 90 tabs, eRx: [facility] #[id number], TAKE ONE TABLET BY MOUTH DAILY Start Date: 08/30/15 Status: Ordered Flovent HFA 110 mcg/inh inhalation aerosol See Instructions, INHALE TWO PUFFS BY MOUTH TWICE A DAY, # 12 unknown unit, eRx : [facility] #[id number], INHALE TWO PUFFS BY MOUTH TWICE A DAY Start Date: 09/18/15 Status: Ordered lisinopril 20 mg oral tablet See Instructions, TAKE ONE TABLET BY MOUTH ONCE A DAY, # 30 tabs, eRx: [facility] #[id number], TAKE ONE TABLET BY MOUTH ONCE A DAY Start Date: 09/18/15 Status: Ordered Nasacort Allergy 24HR nasal spray sprays, Nasal, Daily, 0 Refill(s) Start Date: 08/14/14 Status: Ordered Protonix 40 mg oral delayed release tablet See Instructions, TAKE ONE TABLET BY MOUTH DAILY, # 30 tabs, eRx: [facility] #[id number], TAKE ONE TABLET BY MOUTH DAILY Start Date: 09/18/15 Status: Ordered Uroxatral 10 mg oral tablet, extended release See Instructions, TAKE ONE TABLET BY MOUTH AT BEDTIME, # 30 tabs, 1 Refill(s), eRx: [facility] #[id number], TAKE ONE TABLET BY MOUTH AT BEDTIME Start Date: 09/11/15 Status: Ordered zolpidem 10 mg oral tablet 10 mg 1 tabs, Oral, Bedtime (once a day), as needed for sleep, s [facility] SUPPLY, # 30 tabs, 0 Refill(s) [...] 01/23/2013 Document Reviewed: ExitCare Patient Information 2014 [place]. No follow up information was provided. Extracted from: Title: Office Visit Note Author: Dank Zavala MD Date: 03/25/15 Assessment/Plan Anxiety disorder Overall stable no change in current treatment. Ordered: Office Visit Level 4 Est 98130 Asthma without status asthmaticus Appears stable no change in current treatment. Prevnar was given today. Continue rescue inhaler. If symptoms worsen or become more problematic she'll let us know. Ordered: pneumococcal 13-valent conjugate vaccine, 0.5 mL, IntraMuscular, Once, First Dose: 03/25/15 9:00:00 CDT, Stop Date: 03/25/15 9:00:00 CDT, Form: Injection Office Visit Level 4 Est 78851 Benign essential hypertension Blood pressures well-controlled. Continue current treatment without change. Laboratory studies from last fall reviewed. Recommend a six-month follow-up with fasting lab. Ordered: pneumococcal 13-valent conjugate vaccine, 0.5 mL, IntraMuscular, Once, First Dose: 03/25/15 9:00:00 CDT, Stop Date: 03/25/15 9:00:00 CDT, Form: Injection Office Visit Level 4 Est 64921 Gastroesophageal reflux disease Stable no change in current treatment. Ordered: Office Visit Level 4 Est 49237
--- OUTSIDE RECORDS SUMMARY | 2017-03-08 06:02 | XMS REPORT | Referral Summary ---
Author Author [facility], [facility] Organization [facility] Address Unknown Phone Unavailable Care Team Providers Care Account Financial Manager Name Role Phone Jamil Zavala Primary Care Physician [phone] Encounter VC Date(s): 03/25/15 - 03/25/15 [facility] [address] [place] [address]- Discharge Diagnosis: Gastroesophageal reflux disease Discharge Diagnosis: [...] BY MOUTH DAILY, # 90 tabs, eRx: [facility] #[id number], TAKE ONE TABLET BY MOUTH DAILY Start Date: 08/30/15 Status: Ordered Flovent HFA 110 mcg/inh inhalation aerosol See Instructions, INHALE TWO PUFFS BY MOUTH TWICE A DAY, # 12 unknown unit, eRx : [facility] #[id number], INHALE TWO PUFFS BY MOUTH TWICE A DAY Start Date: 09/18/15 Status: Ordered lisinopril 20 mg oral tablet See Instructions, TAKE ONE TABLET BY MOUTH ONCE A DAY, # 30 tabs, eRx: [facility] #[id number], TAKE ONE TABLET BY MOUTH ONCE A DAY Start Date: 09/18/15 Status: Ordered Nasacort Allergy 24HR nasal spray sprays, Nasal, Daily, 0 Refill(s) Start Date: 08/14/14 Status: Ordered Protonix 40 mg oral delayed release tablet See Instructions, TAKE ONE TABLET BY MOUTH DAILY, # 30 tabs, eRx: [facility] #[id number], TAKE ONE TABLET BY MOUTH DAILY Start Date: 09/18/15 Status: Ordered Uroxatral 10 mg oral tablet, extended release See Instructions, TAKE ONE TABLET BY MOUTH AT BEDTIME, # 30 tabs, 1 Refill(s), eRx: [facility] #[id number], TAKE ONE TABLET BY MOUTH AT BEDTIME Start Date: 09/11/15 Status: Ordered zolpidem 10 mg oral tablet 10 mg 1 tabs, Oral, Bedtime (once a day), as needed for sleep, s [facility] SUPPLY, # 30 tabs, 0 Refill(s) [...] 01/23/2013 Document Reviewed: ExitCare Patient Information 2014 [email or web address]. No follow up information was provided. Extracted from: Title: Office Visit Note Author: Dank Zavala MD Date: 03/25/15 Assessment/Plan Anxiety disorder Overall stable no change in current treatment. Ordered: Office Visit Level 4 Est 61220 Asthma without status asthmaticus Appears stable no change in current treatment. Prevnar was given today. Continue rescue inhaler. If symptoms worsen or become more problematic she'll let us know. Ordered: pneumococcal 13-valent conjugate vaccine, 0.5 mL, IntraMuscular, Once, First Dose: 03/25/15 9:00:00 CDT, Stop Date: 03/25/15 9:00:00 CDT, Form: Injection Office Visit Level 4 Est 83572 Benign essential hypertension Blood pressures well-controlled. Continue current treatment without change. Laboratory studies from last fall reviewed. Recommend a six-month follow-up with fasting lab. Ordered: pneumococcal 13-valent conjugate vaccine, 0.5 mL, IntraMuscular, Once, First Dose: 03/25/15 9:00:00 CDT, Stop Date: 03/25/15 9:00:00 CDT, Form: Injection Office Visit Level 4 Est 28710 Gastroesophageal reflux disease Stable no change in current treatment. Ordered: Office Visit Level 4 Est 62305
--- OUTSIDE RECORDS SUMMARY | 2017-03-08 06:02 | XMS REPORT | Referral Summary ---
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 [...] BY MOUTH DAILY, # 90 tabs, eRx: [facility] #[id number], TAKE ONE TABLET BY MOUTH DAILY Start Date: 08/30/15 Status: Ordered Flovent HFA 110 mcg/inh inhalation aerosol See Instructions, INHALE TWO PUFFS BY MOUTH TWICE A DAY, # 12 unknown unit, eRx : [facility] #[id number], INHALE TWO PUFFS BY MOUTH TWICE A DAY Start Date: 09/18/15 Status: Ordered lisinopril 20 mg oral tablet See Instructions, TAKE ONE TABLET BY MOUTH ONCE A DAY, # 30 tabs, eRx: [facility] #[id number], TAKE ONE TABLET BY MOUTH ONCE A DAY Start Date: 09/18/15 Status: Ordered Nasacort Allergy 24HR nasal spray sprays, Nasal, Daily, 0 Refill(s) Start Date: 08/14/14 Status: Ordered Protonix 40 mg oral delayed release tablet See Instructions, TAKE ONE TABLET BY MOUTH DAILY, # 30 tabs, eRx: [facility] #[id number], TAKE ONE TABLET BY MOUTH DAILY Start Date: 09/18/15 Status: Ordered Uroxatral 10 mg oral tablet, extended release See Instructions, TAKE ONE TABLET BY MOUTH AT BEDTIME, # 30 tabs, 1 Refill(s), eRx: [facility] #[id number], TAKE ONE TABLET BY MOUTH AT BEDTIME Start Date: 09/11/15 Status: Ordered zolpidem 10 mg oral tablet 10 mg 1 tabs, Oral, Bedtime (once a day), as needed for sleep, s [facility] SUPPLY, # 30 tabs, 0 [...] Up With: Where: When: Dank Zavala [address]; [place] [address] Business (1) Within 3 to 5 days Comments: Follow Up With: Where: When: Rohit Lucia [address]; [place] [address] Business (1) In 6 months 02/11/2016 Comments: [...] Patient reminded not to take any medication [id number] that contents any decongestant, for it might cause him to go into urinary retention Ordered: Office Visit Level 3 Est 10630
--- OUTSIDE RECORDS SUMMARY | 2017-03-08 06:02 | XMS REPORT | Continuity of Care Document ---
Author Author [facility] Organization [facility] Address Unknown Phone Unavailable Allergies Active Description Code Type Severity Reaction Onset Reported/Identified Relationship to Patient Clinical Status Yes penicillin NKMA N/A Rash 03/14/2014 Medications Problems Procedures Results Encounters ACCT No. Visit Date/Time Discharge Status Pt. Type Provider Facility Loc./Unit Complaint [id number] 02/09/2014 14:59:00 02/09/2014 23 :59:59 CLS Outpatient
--- OUTSIDE RECORDS SUMMARY | 2017-03-08 06:03 | XMS REPORT | Referral Summary ---
Author Author [facility], [facility] Organization [facility] Address Unknown Phone Unavailable Care Team Providers Care Transfer Table Operator Name Role Phone Jamil Zavala Primary Care Physician [phone] Encounter VC Date(s): 09/27/15 - 09/27/15 [facility] [address] Jacobo [place] [address]- Discharge Diagnosis: Anxiety disorder Discharge Diagnosis: Asthma without status asthmaticus Discharge Diagnosis: Gastroesophageal reflux disease Discharge Diagnosis: Benign essential hypertension Discharge Disposition: 01-Home or Self Care Attending Physician: Dank Zavala MD Admitting Physician: Dank Zavala MD Vital Signs Most recent to 1 oldest [Reference Range]: Temperature Tympanic 36 degC [36.6-38.1 degC] *LOW* (09/27/15 8:39 AM) Peripheral Pulse 68 bpm Rate [60-100 bpm] (09/27/15 8:39 AM) Respiratory Rate 16 br/min [14-20 br/min] (09/27/15 8:00 AM) Blood Pressure 116/80 mmHg [90-140/60-90 mmHg] (09/27/15 8:39 AM) Problem List Condition Effective Dates Status [...] wheezing, # 18 g, 2 Refill(s), Pharmacy: [facility] #[id number] Start Date: 09/27/15 Status: Ordered finasteride 5 mg oral tablet See Instructions, TAKE ONE TABLET BY MOUTH DAILY, # 90 tabs, eRx: [facility] #[id number], TAKE ONE TABLET BY MOUTH DAILY Start Date: 08/30/15 Status: Ordered Flovent HFA 110 mcg/inh inhalation aerosol See Instructions, INHALE TWO PUFFS BY MOUTH TWICE A DAY, # 12 unknown unit, eRx : [facility] #[id number], INHALE TWO PUFFS BY MOUTH TWICE A DAY Start Date: 09/18/15 Status: Ordered lisinopril 20 mg oral tablet See Instructions, TAKE ONE TABLET BY MOUTH ONCE A DAY, # 30 tabs, eRx: [facility] #[id number], TAKE ONE TABLET BY MOUTH ONCE A DAY Start Date: 09/18/15 Status: Ordered Nasacort Allergy 24HR nasal spray sprays, Nasal, Daily, 0 Refill(s) Start Date: 08/14/14 Status: Ordered Protonix 40 mg oral delayed release tablet See Instructions, TAKE ONE TABLET BY MOUTH DAILY, # 30 tabs, eRx: [facility] #[id number], TAKE ONE TABLET BY MOUTH DAILY Start Date: 09/18/15 Status: Ordered Uroxatral 10 mg oral tablet, extended release See Instructions, TAKE ONE TABLET BY MOUTH AT BEDTIME, # 30 tabs, 1 Refill(s), eRx: [facility] #[id number], TAKE ONE TABLET BY MOUTH AT BEDTIME Start Date: 09/11/15 Status: Ordered zolpidem 10 mg oral tablet 10 mg 1 tabs, Oral, Bedtime (once a day), as needed for sleep, s [facility] SUPPLY, # 30 tabs, 0 Refill(s) [...] Patient Education Author: Dank Zavala MD Date: 09/27/15 Family Medicine Asthma Asthma is a recurring [...] Smoke. Air pollutants such as dust, household multiple punch press operator, hair sprays, aerosol sprays, paint fumes, strong [...] later. Symptoms include: Wheezing. Excessive nighttime or quarry plug and feather driller coughing. Frequent or severe coughing with a [...] hardware store, a double-layered or microfilter vacuum pattern cleaner bag, or a vacuum pattern cleaner with a HEPA filter. Replace carpet [...] related to the medicines you are taking ( such as a rash, itching, swelling, or trouble [...] doing well or get worse. Document Released: 11/01/2006 Document Revised: 03/18/2015 Document Reviewed: [facility] Patient [facility] [address] [facility]. This information is not intended to replace advice given to you by your health care provider. Make sure you discuss any questions you have with your health care provider. No follow up information was provided. Extracted from: Title: Office Visit Note Author: Dank Zavala MD Date: 09/27/15 Assessment/Plan Anxiety disorder, Anxiety disorder, unspecified Chronic stable no change in current treatment. He does report he is doing some meditation and that's been helpful for him. Ordered: Office Visit Level 4 Est 64225 Asthma without status asthmaticus, Unspecified asthma, uncomplicated Overall chronic and stable. Continue current treatment plan. Refills given on albuterol. If he is consistently needing the albuterol more frequently he'll let me now. Ordered: influenza virus vaccine, inactivated, 0.5 mL, IntraMuscular, Once, First Dose: 09/27/15 9:00:00 PREVENTIVE MEDICINE SPECIALIST, Stop Date: 09/27/15 9:00:00 PREVENTIVE MEDICINE SPECIALIST Office Visit Level 4 Est 17929 Benign essential hypertension, Essential (primary) hypertension The pressures adequately controlled no change in current treatment recommended. Recent laboratory studies and report card reviewed and provided. Follow-up in 6 months. Ordered: Office Visit Level 4 Est 89596 Gastro-esophageal reflux disease without esophagitis, Gastroesophageal reflux disease Chronic stable no change in current treatment plan. Ordered: Office Visit Level 4 Est 02744 Orders: albuterol, 90 mcg 1 puffs, Inhalation, q4hr, as needed for wheezing, # 18 g, 2 Refill(s), Pharmacy: [facility] #[id number] zolpidem, 10 mg 1 tabs, Oral, Bedtime (once a day), as needed for sleep, s [facility] SUPPLY, # 30 tabs, 0 Refill(s) Insomnia RefilledAmbiencontinue current treatment without change.
--- OUTSIDE RECORDS SUMMARY | 2017-03-08 06:03 | XMS REPORT | Referral Summary ---
Author Author [facility], [facility] Organization [facility] Address Unknown Phone Unavailable Care Team Providers Care Set Decorator Name Role Phone Jamil Zavala Primary Care Physician [phone] Encounter VC Date(s): 03/25/15 - 03/25/15 [facility] [address] Jacobo [place] [address]- Discharge Diagnosis: Gastroesophageal reflux disease Discharge Diagnosis: [...] wheezing, # 18 g, 2 Refill(s), Pharmacy: [facility] #[id number] Start Date: 09/27/15 Status: Ordered finasteride 5 mg oral tablet See Instructions, TAKE ONE TABLET BY MOUTH DAILY, # 90 tabs, eRx: [facility] #[id number], TAKE ONE TABLET BY MOUTH DAILY Start Date: 08/30/15 Status: Ordered Flovent HFA 110 mcg/inh inhalation aerosol See Instructions, INHALE TWO PUFFS BY MOUTH TWICE A DAY, # 12 unknown unit, eRx : [facility] #[id number], INHALE TWO PUFFS BY MOUTH TWICE A DAY Start Date: 09/18/15 Status: Ordered lisinopril 20 mg oral tablet See Instructions, TAKE ONE TABLET BY MOUTH ONCE A DAY, # 30 tabs, eRx: [facility] #[id number], TAKE ONE TABLET BY MOUTH ONCE A DAY Start Date: 09/18/15 Status: Ordered Nasacort Allergy 24HR nasal spray sprays, Nasal, Daily, 0 Refill(s) Start Date: 08/14/14 Status: Ordered Protonix 40 mg oral delayed release tablet See Instructions, TAKE ONE TABLET BY MOUTH DAILY, # 30 tabs, eRx: [facility] #[id number], TAKE ONE TABLET BY MOUTH DAILY Start Date: 09/18/15 Status: Ordered Uroxatral 10 mg oral tablet, extended release See Instructions, TAKE ONE TABLET BY MOUTH AT BEDTIME, # 30 tabs, 1 Refill(s), eRx: [facility] #[id number], TAKE ONE TABLET BY MOUTH AT BEDTIME Start Date: 09/11/15 Status: Ordered zolpidem 10 mg oral tablet 10 mg 1 tabs, Oral, Bedtime (once a day), as needed for sleep, s [facility] SUPPLY, # 30 tabs, 0 Refill(s) [...] 01/23/2013 Document Reviewed: [employer] Patient Information 2014 [place]. No follow up information was provided. Extracted from: Title: Office Visit Note Author: Dank Zavala MD Date: 03/25/15 Assessment/Plan Anxiety disorder Overall stable no change in current treatment. Ordered: Office Visit Level 4 Est 31155 Asthma without status asthmaticus Appears stable no change in current treatment. Prevnar was given today. Continue rescue inhaler. If symptoms worsen or become more problematic she'll let us know. Ordered: pneumococcal 13-valent conjugate vaccine, 0.5 mL, IntraMuscular, Once, First Dose: 03/25/15 9:00:00 CDT, Stop Date: 03/25/15 9:00:00 CDT, Form: Injection Office Visit Level 4 Est 61047 Benign essential hypertension Blood pressures well-controlled. Continue current treatment without change. Laboratory studies from last fall reviewed. Recommend a six-month follow-up with fasting lab. Ordered: pneumococcal 13-valent conjugate vaccine, 0.5 mL, IntraMuscular, Once, First Dose: 03/25/15 9:00:00 CDT, Stop Date: 03/25/15 9:00:00 CDT, Form: Injection Office Visit Level 4 Est 00718 Gastroesophageal reflux disease Stable no change in current treatment. Ordered: Office Visit Level 4 Est 91341
--- OUTSIDE RECORDS SUMMARY | 2017-03-08 06:03 | XMS REPORT | Referral Summary ---
Author Author [facility], [facility] Organization [facility] Address Unknown Phone Unavailable Care Team Providers Care Operating Room Rn Name Role Phone Jamil Zavala Primary Care Physician [phone] Encounter VC Date(s): 09/25/16 - 09/25/16 [facility] [address] [place] [address] Discharge Diagnosis: Benign prostatic hypertrophy Discharge Diagnosis: Insomnia Discharge Diagnosis: Benign essential hypertension Discharge Diagnosis: Seborrheic keratoses Discharge Diagnosis: Gastroesophageal reflux disease Discharge Diagnosis: Anxiety disorder Discharge Disposition: 01-Home or Self Care Attending Physician: Dank Zavala MD Admitting Physician: Dank Zavala MD Vital Signs Most recent to 1 oldest [Reference Range]: Temperature Tympanic 36.2 degC [36.6-38.1 degC] *LOW* (09/25/16 8:00 AM) Peripheral Pulse 84 bpm Rate [60-100 bpm] (09/25/16 8:00 AM) Respiratory Rate 16 br/min [14-20 br/min] (09/25/16 8:00 AM) Blood Pressure 128/84 mmHg [90-140/60-90 mmHg] (09/25/16 8:00 AM) Problem List Condition Effective Dates Status [...] wheezing, # 18 g, 2 Refill(s), Pharmacy: [facility] #[id number] Start Date: 09/27/15 Status: Ordered alfuzosin 10 mg oral tablet, extended release See Instructions, TAKE ONE TABLET BY MOUTH AT BEDTIME, # 90 tabs, 0 Refill(s), Pharmacy: [facility] #[id number], TAKE ONE TABLET BY MOUTH AT BEDTIME Start Date: 08/10/16 Status: Ordered finasteride 5 mg oral tablet 5 mg 1 tabs, Oral, Daily, appt in september, # 90 tabs, 0 Refill(s), Pharmacy: [facility] #[id number], 1 tabs Oral Daily,Instr:appt in september Start Date: 08/10/16 Status: Ordered Flovent HFA 110 mcg/inh inhalation aerosol See Instructions, INHALE TWO PUFFS BY MOUTH TWICE A DAY, # 12 unknown unit, 1 Refill(s), eRx: [facility] #[id number], INHALE TWO PUFFS BY MOUTH TWICE A DAY Start Date: 09/09/16 Status: Ordered lisinopril 20 mg oral tablet See Instructions, TAKE ONE TABLET BY MOUTH ONCE A DAY, # 30 tabs, eRx: [facility] #[id number], TAKE ONE TABLET BY MOUTH ONCE A DAY Start Date: 09/09/16 Status: Ordered Nasacort Allergy 24HR nasal spray sprays, Nasal, Daily, 0 Refill(s) Start Date: 08/14/14 Status: Ordered pantoprazole 40 mg oral delayed release tablet See Instructions, TAKE ONE TABLET BY MOUTH DAILY, # 30 tabs, 3 Refill(s), eRx: [facility] #[id number], TAKE ONE TABLET BY MOUTH DAILY Start Date: 08/10/16 Status: Ordered zolpidem 10 mg oral tablet 10 mg 1 tabs, Oral, Bedtime (once a day), as needed for sleep, s [facility] SUPPLY, # 30 tabs, 0 Refill(s) Start Date: 09/25/16 Status: Ordered Results No data available for this section Immunizations Vaccine Date Refusal Reason tetanus/diphth/pertuss (Tdap) adult/adol 02/24/13 influenza virus vaccine, inactivated 09/25/16 influenza virus vaccine, inactivated 09/27/15 influenza virus [...] Visit Note Author: Dank Zavala MD Date: 09/25/16 Assessment/Plan 1.Anxiety disorder Chronic relatively stable no change in current treatment recommended. Ordered: Office Visit Level 4 Est 48462 2.Benign essential hypertension The pressures well-controlled. Medications treatments reviewed no changes are recommended. Report card reviewed and provided. Recent laboratory studies reviewed. Follow-up in 6 months. Ordered: Office Visit Level 4 Est 55401 3.Gastroesophageal reflux disease Chronic stable no change in current treatment. Ordered: Office Visit Level 4 Est 38081 4.Benign prostatic hypertrophy Overall his symptoms are well-controlled on his current medications. I'm going to continue to fill those for him. If he developsproblemsor difficulties we could seek urology consultation at that time. Ordered: Office Visit Level 4 Est 55529 5.Insomnia Chronic stable on Ambien no change in current treatment refills provided today. Ordered: Office Visit Level 4 Est 67091 6.Seborrheic keratoses Reassurance regarding the skin lesions no specific treatment unless they become bothersome. Ordered: Office Visit Level 4 Est 39710 Flu shot recommended and provided today.
--- OUTSIDE RECORDS SUMMARY | 2017-03-08 06:03 | XMS REPORT | Referral Summary ---
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 Role Phone Jamil Zavala Primary Care Physician [phone] Encounter VC Date(s): 05/30/15 - 05/30/15 [facility] [address] [place] [address] Discharge Diagnosis: Otalgia Discharge Diagnosis: Cerumen impaction Discharge Diagnosis: Allergic rhinitis Discharge Disposition: 01-Home or Self Care Attending Physician: Dank Zavala MD Admitting Physician: Dank Zavala MD Vital Signs Most recent to 1 oldest [Reference Range]: Temperature Tympanic 36.4 degC [36.6-38.1 degC] *LOW* (05/30/15 4:04 PM) Peripheral Pulse 80 bpm Rate [60-100 bpm] (05/30/15 4:04 PM) Respiratory Rate 16 br/min [14-20 br/min] (05/30/15 4:04 PM) Blood Pressure 124/86 mmHg [90-140/60-90 mmHg] (05/30/15 4:04 PM) Problem List Condition Effective Dates Status Health [...] wheezing, # 18 g, 2 Refill(s), Pharmacy: [facility] #[id number] Start Date: 09/27/15 Status: Ordered finasteride 5 mg oral tablet See Instructions, TAKE ONE TABLET BY MOUTH DAILY, # 90 tabs, eRx: [facility] #[id number], TAKE ONE TABLET BY MOUTH DAILY Start Date: 08/30/15 Status: Ordered Flovent HFA 110 mcg/inh inhalation aerosol See Instructions, INHALE TWO PUFFS BY MOUTH TWICE A DAY, # 12 unknown unit, 2 Refill(s), eRx: [facility] #[id number], INHALE TWO PUFFS BY MOUTH TWICE A DAY Start Date: 11/06/15 Status: Ordered lisinopril 20 mg oral tablet See Instructions, TAKE ONE TABLET BY MOUTH ONCE A DAY, # 30 tabs, 4 Refill(s), eRx: [facility] #[id number], TAKE ONE TABLET BY MOUTH ONCE A DAY Start Date: 10/16/15 Status: Ordered Nasacort Allergy 24HR nasal spray sprays, Nasal, Daily, 0 Refill(s) Start Date: 08/14/14 Status: Ordered Protonix 40 mg oral delayed release tablet See Instructions, TAKE ONE TABLET BY MOUTH DAILY, # 30 tabs, 4 Refill(s), eRx: [facility] #[id number], TAKE ONE TABLET BY MOUTH DAILY Start Date: 10/16/15 Status: Ordered Uroxatral 10 mg oral tablet, extended release See Instructions, TAKE ONE TABLET BY MOUTH AT BEDTIME, # 30 tabs, 2 Refill(s), eRx: [facility] #[id number], TAKE ONE TABLET BY MOUTH AT BEDTIME Start Date: 11/11/15 Status: Ordered zolpidem 10 mg oral tablet 10 mg 1 tabs, Oral, Bedtime (once a day), as needed for sleep, s [facility] SUPPLY 10/26/15, # 30 tabs, 0 Refill(s) Start Date: 11/22/15 Status: Ordered Results No data available for [...] Patient Education Author: Dank Zavala MD Date: Allergy Allergic Rhinitis Allergic rhinitis is when the mucous membranes in the nose respond to allergens. Allergens are particles in the air that cause your body to have an allergic reaction. This causes you to release allergic antibodies. Through a chain of events, these eventually cause you to release histamine into the blood stream. Although meant to protect the body, it is this release of histamine that causes your discomfort, such as frequent sneezing, congestion, and an itchy , runny nose. CAUSES Seasonal allergic rhinitis (hay fever ) is caused by pollen allergens that may come from grasses, trees, and weeds. Year-round allergic rhinitis (perennial allergic rhinitis ) is caused by allergens such as house dust mites, pet dander , and mold spores. SYMPTOMS Nasal stuffiness (congestion ). Itchy, runny nose with sneezing and tearing of the eyes. DIAGNOSIS Your health care provider can help you determine the allergen or allergens that trigger your symptoms. If you and your health care provider are unable to determine the allergen, skin or blood testing may be used. TREATMENT Allergic Rhinitis does not have a cure, but it can be controlled by: Medicines and allergy shots (immunotherapy ). Avoiding the allergen. Hay fever may often be treated with antihistamines in pill or nasal spray forms. Antihistamines block the effects of histamine. There are over-the- counter medicines that may help with nasal congestion and swelling around the eyes. Check with your health care provider before taking or giving this medicine. If avoiding the allergen or the medicine prescribed do not work, there are many new medicines your health care provider can prescribe. Stronger medicine may be used if initial measures are ineffective. Desensitizing injections can be used if medicine and avoidance does not work. Desensitization is when a patient is given ongoing shots until the body becomes less sensitive to the allergen. Make sure you follow up with your health care provider if problems continue. HOME CARE INSTRUCTIONS It is not possible to completely avoid allergens, but you can reduce your symptoms by taking steps to limit your exposure to them. It helps to know exactly what you are allergic to so that you can avoid your specific triggers. SEEK MEDICAL CARE IF: You have a fever. You develop a cough that does not stop easily (persistent ). You have shortness of breath. You start wheezing. Symptoms interfere with normal daily activities. Document Released: 07/27/2002 Document Revised: 08/22/2014 Document Reviewed: Exit[employer] Patient Information 2014 [facility]. No follow up information was provided. Extracted from: Title: Office Visit Note Author: Dank Zavala MD Date: 05/30/15 Assessment/Plan Allergic rhinitis Recommended adding Claritin 10 mg a day and we'll see if this doesn't help the symptoms. Cerumen impaction We cleaned his ears out the canal on the left side looks a little irritated. The TM is normal and the irritation is likely from the cleaning process. Does not look infected. Otalgia Hopefully this will be improved with clearing out the wax and adding the Claritin. If not or further problems develop he'll let me know. He'll continue his other regular medications.
[2017-03-08] MEDS ORDERED: FLUT100D2 INH (06:27)
[2017-03-08] MEDS ORDERED: BETA1TAB22 (06:27)
[2017-03-08] MEDS ORDERED: PROPOFOL 500mg 50 ML IV ONE (06:53)
[2017-03-08] MEDS ORDERED: PROPOFOL 200mg 20 ML IV ONE (06:56)
[2017-03-08] MEDS ORDERED: KETAMINE 500mg/10ml INJECTION ONE (06:59)
[2017-03-08] MEDS ORDERED: LIDOCAINE 1%/EPI 1:100,000 20ml MDV ONE (06:59)
[2017-03-08] MEDS ORDERED: OXYMETAZOLINE 0.05% NASAL SPRAY 15 ML EA NOSTRIL ONE (07:00)
[2017-03-08] MEDS ORDERED: LIDOCAINE 1% (10mg/ml) 2ml SDV INJ ONE (07:00)
[2017-03-08] MEDS ORDERED: LR 1,000 ML IV SCH (07:00)
[2017-03-08] MEDS ORDERED: FENTANYL 250mcg/5ml INJECTION ONE (07:09)
[2017-03-08] MEDS ORDERED: LIDOCAINE JELLY 2% 30ml TUBE ONE (07:11)
--- NOTE | 2017-03-08 07:26 | ANESPREOP ---
Anesthesia Record Date and Time DATE: 03/08/17 TIME: 07:20 Pre-Op Diagnosis deviated nasal septum Proposed Surgical Procedure SEPTOPLASTY NPO since: 2199 Allergies: Coded Allergies: Penicillins (Verified Allergy, Severe, HIVES, 03/05/17) Ht/Wt/BMI Height: 5 ' 11.00 " Weight: 99.800 kg BMI: 30.7 kg/m2 Vital Signs Date Time Temp Pulse Resp B/P Pulse Ox O2 Delivery O2 Flow Rate FiO2 03/08/17 07:18 97.8 03/08/17 06:16 72 16 133/85 96 Room Air Medications Inpatient Medications Current Medications Medications (Trade) Dose Ordered Sig/Darrick Start Time Stop Time Status Last Admin Dose Admin Lactated Ringer's (Lactated Ringers) 1,000 ml @ 30 mls/hr Q24H 03/08/17 07:00 03/08/17 06:37 30 MLS/HR Albuterol Sulfate (Proair HFA 90 mcg/actuation) 8.5 Gm Hfa.aer.ad, 2 PUFF INH Q6H PRN for SHORTNESS OF AIR, (Reported) Last Taken: on Unknown Date & Time Alfuzosin HCl (Alfuzosin HCl ER) 10 Mg Tab.er.24h, 1 TAB PO DAILY, (Reported) Last Taken: on 03/07/172329 Finasteride (Finasteride) 5 Mg Tablet, 1 TAB PO DAILY, (Reported) Last Taken: on 03/07/172329 Fluticasone Propionate (Flovent Diskus) 100 Mcg Blst.w.dev, 1 PUFF INH BID, (Reported) Last Taken: on 03/08/17 0500 Lisinopril (Lisinopril) 20 Mg Tablet, 20 MG PO DAILY, (Reported) Last Taken: on 03/07/17 0700 Pantoprazole (Protonix) 40 Mg Tablet.dr, 40 MG PO DAILY, (Reported) Last Taken: on 03/08/17 0500 Triamcinolone Acetonide (Nasacort Aq) 16.5 Gm Jarratt, 16.5 GM NS PRN, (Reported) Last Taken: on 03/07/17 0700 Vit A/Vit C/Vit E/Zinc/Copper (Preservision Areds Tablet) 1 Each Tablet, 1, (Reported) Last Taken: on 03/07/17 1200 Zolpidem Tartrate (Ambien) 10 Mg Tablet, 10 MG PO HS, (Reported) Last Taken: on 03/07/17 2330 Currently on Beta Lazara: No Medical/Surgical History Anesthesia PMH: Reports: *Hypertension (TAKES MEDS), Asthma (USES INHALER), Hiatal Hernia, Reflux, Sleep Apnea, Denies: Anesthesia Reactions (NO AIRWAY ISSUES), Arthritis, Blood Transfusion Reac, Cancer, Clotting Problems, Glaucoma , Malignant Hyperthermia, Renal Disease Smoking Status: Never smoker Has pt. smoked today?: No Use Chewing Tobacco?: No Second Hand Exposure: No Substance Use Type: does not use Alcohol Intake: none Past Surgical History Orthopedic Surgeries: Abdominal Surgeries: Genitourinary Surgeries: Yes - BLADDER BX., PROSTATE BX. Cardiac Surgeries: Endocrine Surgeries: Reproductive Surgeries: Neurological Surgeries: Ear Surgeries: Nose Surgeries: Throat Surgeries: Other Surgeries: Yes - COLONOSCOPY, BX PROSTATE, EGD Anesthesia Adverse Reactions: FOUND none Family Hx of Anesthesia Advers: none Hx of Motion Sickness: No Pertinent Findings EKG Rhythm: Sinus Rhythm Physical Exam Respiratory: Lungs clear Cardiovascular: FOUND Regular rate, rhythm, FOUND No murmur Airway Assessment Mallampati Score: II TMD: 3 Fingerbreadths Neck Extension: Good Teeth: Chipped Teeth/Crowns Overall Assessment: No Airway Concerns ASA: 2 Plan Anesthesia Plan: TIVA Discussion Discussed risks/options/alternatives of anesthesia and questions answered. Patient consents. Nursing pain assessment noted. Present: Spouse Attestation Statement Prior to the delivery of any anesthetic medication, I examined the patient, developed the plan, obtained the patient's consent and discussed the risk and benefits of the procedure with the patient/guardian. KOTA AKHTAR CRNA Mar 08, 2017 07:24
[2017-03-08] MEDS ORDERED: OXYCODONE/APAP 5mg/325mg TABLET PO PRN (08:15)
[2017-03-08] MEDS ORDERED: OXYC1TAB8 PO (08:17)
--- NOTE | 2017-03-08 08:59 | ANESPO ---
Post-Op Note Date 03/08/17 Time: 08:59 Status Pt Participated in Evaluation: Pt participated in person Vital Signs Date Time Temp Pulse Resp B/P Pulse Ox O2 Delivery O2 Flow Rate FiO2 03/08/17 08:45 61 16 138/75 96 Room Air 03/08/17 08:13 97.0 6.00 Respiratory Function: Airway patent, Regular respirations Cardiovascular Function: Regular pulse Telemetry Pattern: SR Mental Status: Alert/oriented Pain Level Intensity: 2 Hydration: Taking po fluids Complications during Recovery None apparent Follow-Up Instructions Instructions Per Surgeon ISH TAYLOR CRNA Mar 08, 2017 08:59
--- NOTE | 2017-03-08 13:11 | OPNOTEF ---
DATE OF OPERATION 03/08/2017 PREOPERATIVE DIAGNOSIS Deviated septum. POSTOPERATIVE DIAGNOSIS Deviated septum. PROCEDURE Septoplasty. SURGEON Kali Walls MD ANESTHESIA General FINDINGS Deviated septum with large septal spur on the left side contacting the lateral nasal wall. SPECIMENS None. INDICATIONS This is a 66-year-old man with history of deviated nasal septum treated with aggressive medical management and he remains symptomatic. He underwent endoscopic exam, he had a left-sided septal spur. The risks and benefits of surgery were discussed and informed consent was obtained. He presents today for scheduled surgery. DESCRIPTION OF OPERATION The patient was taken to the OR and anesthesia was induced. The nose was decongested with Afrin. The nose was examined with an endoscope. There was a large septal spur on the left side contacting the lateral nasal wall and impaling the inferior turbinate. The right side is largely patent. 1% lidocaine with 1:200,000 epinephrine was injected into the septal mucosa. Using an endoscope for visualization, an incision was made anterior to the spur and then along the apex of the crest and the nuchal periosteal flaps were then raised off of this bony spur. The bone was then fractured anterior to the area where the spur was and then the contralateral flap was raised. The obstructing bony spur was then removed and the flaps were repositioned in a normal anatomic position. They were secured in place with Gelfoam. The inferior turbinates were outfractured as well as this has contacted the septum on the left side. He was then awoken and taken to recovery in stable condition. NATALI
== END 2017-03-08 09:30 | disposition home or self-care (01) ==
LOC: NSC 05:57
PROVIDERS: ATTEND Otolaryngology
DX: J34.2 Deviated nasal septum (principal); I10 Essential (primary) hypertension; J45.909 Unspecified asthma, uncomplicated; K21.9 Gastro-esophageal reflux disease without esophagitis; G47.30 Sleep apnea, unspecified; Z79.899 Other long term (current) drug therapy; Z79.51 Long term (current) use of inhaled steroids; Z88.0 Allergy status to penicillin
CPT/HCPCS: 30520; A9270; J0330; J2704; J3010; J7120